=== PATIENT | female | born 1965 | race Caucasian/White ===

== ENCOUNTER 2021-02-18 08:12 | Inpatient (IN) | payer BC ==
[2021-02-17 11:45] LABS: BASOPHILS # (AUTO) 0.1 X10'3 (0-0.2); BASOPHILS % (AUTO) 0.8 % (0-1); EOSINOPHILS % (AUTO) 0.4 % (0-6); LYMPHOCYTES # (AUTO) 2.7 X10'3 (1.1-4.8); LYMPHOCYTES % (AUTO) 33.3 % (21-51); MEAN CORPUSCULAR HEMOGLOBIN 29.5 PG (27.0-31.0); MEAN CORPUSCULAR HGB CONC 33.7 g/dL (33.0-36.5); MEAN CORPUSCULAR VOLUME 87.6 FL (78-98); MEAN PLATELET VOLUME 7.9 FL (7.4-10.4); MONOCYTES # (AUTO) 0.4 X10'3 (0-0.9); MONOCYTES % (AUTO) 5.2 % (2-12); NEUTROPHILS # (AUTO) 4.9 X10'3 (1.8-7.7); NEUTROPHILS % (AUTO) 60.3 % (42-75); PRE OP HEMATOCRIT 42.4 % (35.0-45.0); PRE OP HEMOGLOBIN 14.3 g/dL (12.0-16.0); PRE OP PLATELET COUNT 385 X10'3 (140-440); RED BLOOD COUNT 4.84 X10'6 (4.20-5.60); RED CELL DISTRIBUTION WIDTH 12.5 % (11.5-14.5)
[2021-02-17 11:55] LABS: ALBUMIN/GLOBULIN RATIO 0.9 (1.1-1.5); ALKALINE PHOSPHATASE 75 IU/L (46-116); BLOOD UREA NITROGEN 19 MG/DL (7-18); BUN/CREATININE RATIO 19.6 (6.6-38.0); CALCIUM 9.3 MG/DL (8.5-10.1); CHLORIDE 105 MMOL/L (99-107); CREATININE 0.97 MG/DL (0.40-0.90); PRE OP ALT 40 U/L (30-65); PRE OP ANION GAP 8 (8-16); PRE OP AST 26 U/L (10-37); PRE OP BILIRUB, TOTAL 0.4 MG/DL (0.0-1.0); PRE OP GLUCOSE 91 MG/DL (70-104); PRE OP POTASSIUM 4.1 MMOL/L (3.4-5.1); PRE OP SODIUM 143 MMOL/L (135-145); TOTAL CARBON DIOXIDE 29.6 MMOL/L (24-32); TOTAL PROTEIN 8.3 G/DL (6.4-8.2); eGFR 60 ML/MIN
[2021-02-17 12:44] LABS: PRE OP PROTIME 10.7 SECONDS (9.0-12.0)
[2021-02-18] VITALS (27 sets, daily range): BP systolic 90–158; BP diastolic 41–93
[~2021-02-18] VITALS: Ht 180.3 cm; Wt 79.4 kg
[~2021-02-18 08:12] MED LIST: BIOT5000 PO; CEFD300C3 PO; CHOL20004 PO; FLUT16SP2 BOTHNARES; MULT-1085 PO; OMEG-79 PO; ZINC50TA67 PO; famotidine 20mg tablet PO ONE; ringers solution, lacted 1,000 ML IV SCH
[2021-02-18] MEDS ORDERED: LIDOcaine 1% (10mg/ml) 2ml vial ONE ×2 (09:05→11:20)
[2021-02-18 10:19] LABS: CLARITY,URINE CLEAR (Clear); COLOR,URINE YELLOW (Yellow); GLUCOSE, URINE NEGATIVE (Neg); KETONES,URINE NEGATIVE (Neg); NITRITES, URINE NEGATIVE (Neg); OCCULT BLOOD,URINE NEGATIVE (Neg); PROTEIN,URINE NEGATIVE (Neg); UA COLLECTION TYPE CLN CATCH MIDSTREAM; UROBILINOGEN,URINE 0.2 E.U/dL (0.2-1.0)
[2021-02-18 10:22] LABS: LEUKOCYTE ESTERASE ,URINE TRACE (Neg)
[2021-02-18 10:23] LABS: BACTERIA,URINE FEW /HPF (Neg); MUCUS STRANDS NONE SEEN /LPF (Neg); RBC,URINE NONE SEEN /HPF (0-2); SQUAMOUS EPITHELIAL CELL,UR FEW /LPF (FEW)
[2021-02-18] MEDS ORDERED: BUPIVAcaine 0.5% inj/PF 30 ML ONE ×2 (11:20→16:43)
[2021-02-18] MEDS ORDERED: rocuronium 10mg/ml inj IV ONE ×3 (11:21→15:24)
[2021-02-18] MEDS ORDERED: LIDOcaine 2% (20mg/ml) 5ml vial ONE (11:21)
[2021-02-18] MEDS ORDERED: ondansetron/PF 4mg/2ml inj ONE (11:21)
[2021-02-18] MEDS ORDERED: propofol inj 20 ML IV ONE (11:21)
[2021-02-18] MEDS ORDERED: LIDOcaine 1%/PF 5ML 10 MG/ML VIAL ONE (11:21)
[2021-02-18] MEDS ORDERED: MIDAZolam 1 MG/ML 5ML VIAL ONE (11:22)
[2021-02-18] MEDS ORDERED: fentaNYL /PF 50mcg/ml 5ml ampule ONE ×2 (11:22→16:03)
[2021-02-18] MEDS ORDERED: cefazolin/dext.iso 2gm/50ml 50 ML IV ONE (11:25)
[2021-02-18] MEDS ORDERED: MIDAZolam 1mg/ml 10ml vial ONE (12:22)
[2021-02-18] MEDS ORDERED: albumin (Human) 5% 250ml 250 ML IV ONE (13:08)
[2021-02-18] MEDS ORDERED: dexamethasone sod phosphate 4mg/ml inj. ONE (13:12)
[2021-02-18] MEDS ORDERED: ringers solution, lacted 1,000 ML IV SCH (14:10)
[2021-02-18] MEDS ORDERED: morphine 4 MG/ML inj SYRINge IV PRN ×3 (14:10→17:35)
[2021-02-18] MEDS ORDERED: fentaNYL/PF 50MCG/1 ML 2ML syringe IV PRN ×2 (14:10)
[2021-02-18] MEDS ORDERED: ondansetron/PF 4mg/2ml inj IV PRN ×3 (14:10→17:35)
[2021-02-18] MEDS ORDERED: labetalol 20mg/4ml (5mg/ml) syringe IV PRN (14:10)
[2021-02-18] MEDS ORDERED: hydrALAZINE 20mg/ml inj. IV PRN (14:10)
[2021-02-18] MEDS ORDERED: sugammadex 200mg/2ml injection IV ONE (16:42)
[2021-02-18] MEDS ORDERED: BUPIVACAINE liposomal/PF 13.3 MG/ML vial IM ONE (16:43)
[2021-02-18] MEDS ORDERED: albuterol 2.5 MG/3 ML nebule NEB ONE (17:05)
--- NOTE | 2021-02-18 17:29 | NUR ---
Received from OR via BED, accompanied by Anesthesiologist DR BOWERS and report given by Anesthesiologist AND AFTER SCHOOL COUNSELOR. PT VERY DROWSY, NO S/S OF DISTRESS/DISCOMFORT, VSS. RIGHT LATERAL POSTERIOR CHEST W/4 LAP SITES W/BANDAIDS CDI, SINGLE CT TO RIGHT LATERAL ANTERIOR CHEST W/SANGUINOUS DRAINAGE. CT TO 20 CM H20 SUCTION, NO AIR LEAK NOTED. PITTS CATHETER TO GRAVITY DRAINAGE W/YELLOW URINE IN DRAINAGE BAG. Addendum: 02/18/21 at 1827 by aMrcie Morgan RN Amended: Links added.
[2021-02-18] MEDS ORDERED: naloxone 0.4 mg/ml inj IV PRN (17:35)
[2021-02-18] MEDS ORDERED: metoclopramide 5 mg/ml inj IV PRN (17:35)
[2021-02-18] MEDS ORDERED: HYDROcodone/acetaminophen 10/325mg tab PO PRN (17:35)
[2021-02-18] MEDS ORDERED: albuterol 2.5 MG/3 ML nebule NEB PRN (17:35)
[2021-02-18] MEDS ORDERED: CADD PCA waste documentation MC PRN (17:35)
[2021-02-18 17:42] LABS: ABG HCO3 21.5 mmol/L (22.0-26.0); ABG OXYGEN SATURATION 98.9 % (94-97); ABG PCO2 (T) 40.5 mmHg (32.0-45.0); ALLEN'S TEST POSITIVE; FCOHb 0.3 % (0.0-3.9); FLOW 10 L/min; FMetHb 0.3 % (0.0-1.5); FO2Hb 98.3 % (94-97); PATIENT TEMPERATURE 36.9; TOTAL HEMOGLOBIN 12.9 G/dl (12.0-16.0)
[2021-02-18] MEDS: morphine 2 MG/ML inj. syringe IV PRN ×3 (18:46→19:31)
[2021-02-18] MEDS ORDERED: ketorolac trometh. 30mg/ml inj. IV ONE (19:55)
[2021-02-18] MEDS ORDERED: ketorolac trometh. 30mg/ml inj. IV PRN (19:55)
[2021-02-18] MEDS ORDERED: acetaminophen 1,000mg/100ml IV 100 ML IV ONE (19:55)
--- NOTE | 2021-02-18 19:58 | NUR ---
ARTERIAL LINE D/CD, HEMOSTASIS ACHIEVED, PARDEEP MINOR. DR LOYA IN TO SEE PT. Addendum: 02/18/21 at 1958 by Marcie Morgan RN Amended: Links added.
--- NOTE | 2021-02-18 20:28 | NUR ---
Report called to receiving nurse. PT STATES IS COMFORTABLE, PAIN MUCH IMPROVED. Transferred via BED ON TELE AND SUCTION FOR CT, 1 LARGE DUFFLE BAG W/Belongings, 1 BLACK GARBAGE BAG W/PILLOW AND BLANKET SENT W/PT TO ROOM 3019. RECEIVING RN AT BEDSIDE TO RECEIVE PT, BLL, CALL LIGHT GIVEN, SIDE RAILS UP X 2. CT TO 20 CM H2O SUCTION. Special Issues communicated to receiving nurse. YES. Addendum: 02/18/21 at 2042 by Marcie Morgan RN Amended: Links added.
--- NOTE | 2021-02-18 20:30 | NUR ---
Report received from Marcie. Addendum: 02/18/21 at 2113 by Steffany Whitley RN residential manager. Patient brought to room. BS checked. water and broth provided. CT checked and draining per suction at 20.
[2021-02-18] MEDS: gabapentin 300mg capsule PO SCH (21:12)
[2021-02-18] MEDS: dextrose 5%-lactated ringers 1,000 ML IV SCH (21:14)
[2021-02-18] MEDS: HYDROcodone/acetaminophen 10/325mg tab PO PRN (21:32)
[2021-02-18] MEDS: ceFAZolin 1GM/D5W- ADD-VANTAGE 50 ML IV SCH (23:49)
[2021-02-19] VITALS (7 sets, daily range): BP systolic 90–130; BP diastolic 43–70
[2021-02-19] MEDS: HYDROcodone/acetaminophen 10/325mg tab PO PRN ×4 (01:36→20:39)
--- NOTE | 2021-02-19 01:45 | NUR ---
Administered [place] 10/325 at 0136 since it is past 0000 and Acetaminophen daily limit has restarted.
--- NOTE | 2021-02-19 02:42 | NUR ---
reviewed and edited SRN assessment findings.
[2021-02-19] MEDS: dextrose 5%-lactated ringers 1,000 ML IV SCH ×2 (03:45→07:38)
--- NOTE | 2021-02-19 06:01 | NUR ---
Administered [place] at 0551 since it is past 0000 and Acetaminophen daily limit has restarted. 500mg given of acetaminophen so far today. Addendum: 02/19/21 at 0623 by Ritu LEONARD 650mg tylenol given not 500
--- NOTE | 2021-02-19 06:18 | NUR ---
Problems reprioritized. Patient report given, questions answered & plan of care reviewed with Constance.
--- NOTE | 2021-02-19 06:31 | NUR ---
Patient in room PCU 3019. I have received report from LYNETTE Jeter and had the opportunity to ask questions and assume patient care.
[2021-02-19 06:56] LABS: ALANINE AMINOTRANSFERASE 61 U/L (12-78); ALBUMIN 3.3 G/DL (3.4-5.0); ALKALINE PHOSPHATASE 57 IU/L (46-116); ANION GAP 7 (8-16); ASPARTATE AMINO TRANSFERASE 49 U/L (10-37); BASOPHILS % (AUTO) 0.1 % (0-1); BILIRUBIN,TOTAL 0.5 MG/DL (0.1-1.0); BLOOD UREA NITROGEN 15 MG/DL (7-18); BUN/CREATININE RATIO 13.9 (6.6-38.0); CALCIUM 8.2 MG/DL (8.5-10.1); CHLORIDE 108 MMOL/L (99-107); CREATININE 1.08 MG/DL (0.40-0.90); EOSINOPHILS % (AUTO) 0 % (0-6); GLUCOSE 115 MG/DL (70-104); HEMATOCRIT 36.4 % (35.0-45.0); HEMOGLOBIN 12.1 g/dl (12.0-16.0); LYMPHOCYTES # (AUTO) 2.2 X10'3 (1.1-4.8); LYMPHOCYTES % (AUTO) 18.1 % (21-51); MAGNESIUM 1.9 MG/DL (1.5-2.4); MEAN CORPUSCULAR HEMOGLOBIN 29.7 PG (27.0-31.0); MEAN CORPUSCULAR HGB CONC 33.3 g/dL (33.0-36.5); MEAN CORPUSCULAR VOLUME 89.3 FL (78-98); MONOCYTES # (AUTO) 1.1 X10'3 (0-0.9); MONOCYTES % (AUTO) 8.7 % (2-12); NEUTROPHILS # (AUTO) 8.9 X10'3 (1.8-7.7); NEUTROPHILS % (AUTO) 73.1 % (42-75); PHOSPHORUS 3.8 MG/DL (2.3-4.5); PLATELET COUNT 348 X10'3 (140-440); POTASSIUM 4.3 MMOL/L (3.5-5.1); RED BLOOD COUNT 4.08 X10'6 (4.20-5.60); RED CELL DISTRIBUTION WIDTH 12.6 % (11.5-14.5); SODIUM 143 MMOL/L (135-145); TOTAL CARBON DIOXIDE 27.8 MMOL/L (24-32); TOTAL PROTEIN 6.7 G/DL (6.4-8.2); WHITE BLOOD COUNT 12.1 X10'3 (4.5-11.0); eGFR 53 ML/MIN
[2021-02-19] MEDS: gabapentin 300mg capsule PO SCH ×2 (07:37→20:39)
[2021-02-19] MEDS: ceFAZolin 1GM/D5W- ADD-VANTAGE 50 ML IV SCH (08:54)
--- NOTE | 2021-02-19 09:44 | NUR ---
patient up and ambulating with PT.
--- NOTE | 2021-02-19 09:56 | NUR ---
patient was up to ambulate with PT and upon return to room right lung chest tube draining serosanguineous fluid. Reinforced with abd pad and tape. Will continue to monitor. Addendum: 02/19/21 at 0957 by Constance Fontenot RN Amended: Links added.
--- NOTE | 2021-02-19 12:09 | NUR ---
DM consult: Per EMR pt with pre-diabetes, current A1c is 5.5%, DM education not warranted at this time. Will continue to follow. Addendum: 02/19/21 at [address] Amended: Links added.
--- NOTE | 2021-02-19 13:52 | NUR ---
Dressing to right chest tube again reinforced.
--- NOTE | 2021-02-19 15:16 | NUR ---
Dr. Castaneda was in to see patient and aware patient's chest tube dressing has been reinforced twice. Dr. Pugh reassured patient that was normal. IJ to right neck Dc'd. Patient chest tube on water seal. Turner catheter also dc'd. Will continue to monitor.
--- NOTE | 2021-02-19 18:16 | NUR ---
Problems reprioritized. Patient report given, questions answered & plan of care reviewed with LYNETTE Jeter.
[2021-02-20] MEDS: HYDROcodone/acetaminophen 10/325mg tab PO PRN ×4 (00:36→15:26)
--- NOTE | 2021-02-20 00:47 | NUR ---
reviewed and edited SRN assessment.
--- NOTE | 2021-02-20 03:19 | NUR ---
Patient refused 0200 vitals.
[2021-02-20 06:00] VITALS: BP 96/49
--- NOTE | 2021-02-20 06:30 | NUR ---
Problems reprioritized. Patient report given, questions answered & plan of care reviewed with Viraj.
--- NOTE | 2021-02-20 06:44 | NUR ---
Patient in room PCU 3019. I have received report from Steffany long and had the opportunity to ask questions and assume patient care.
[2021-02-20 07:27] LABS: BASOPHILS # (AUTO) 0.1 X10'3 (0-0.2); BASOPHILS % (AUTO) 0.6 % (0-1); EOSINOPHILS # (AUTO) 0.2 X10'3 (0-0.9); EOSINOPHILS % (AUTO) 1.8 % (0-6); HEMATOCRIT 36.3 % (35.0-45.0); HEMOGLOBIN 12.2 g/dl (12.0-16.0); LYMPHOCYTES % (AUTO) 42.7 % (21-51); MEAN CORPUSCULAR HEMOGLOBIN 30.4 PG (27.0-31.0); MEAN CORPUSCULAR HGB CONC 33.7 g/dL (33.0-36.5); MEAN CORPUSCULAR VOLUME 90.3 FL (78-98); MEAN PLATELET VOLUME 8.1 FL (7.4-10.4); MONOCYTES # (AUTO) 0.9 X10'3 (0-0.9); MONOCYTES % (AUTO) 9.2 % (2-12); NEUTROPHILS # (AUTO) 4.3 X10'3 (1.8-7.7); NEUTROPHILS % (AUTO) 45.7 % (42-75); PLATELET COUNT 340 X10'3 (140-440); RED BLOOD COUNT 4.02 X10'6 (4.20-5.60); RED CELL DISTRIBUTION WIDTH 12.5 % (11.5-14.5); WHITE BLOOD COUNT 9.4 X10'3 (4.5-11.0)
[2021-02-20 07:48] LABS: ALANINE AMINOTRANSFERASE 52 U/L (12-78); ALBUMIN 3.3 G/DL (3.4-5.0); ALBUMIN/GLOBULIN RATIO 0.9 (1.1-1.5); ALKALINE PHOSPHATASE 60 IU/L (46-116); ANION GAP 7 (8-16); ASPARTATE AMINO TRANSFERASE 34 U/L (10-37); BILIRUBIN,TOTAL 0.5 MG/DL (0.1-1.0); BLOOD UREA NITROGEN 14 MG/DL (7-18); BUN/CREATININE RATIO 14.7 (6.6-38.0); CALCIUM 8.4 MG/DL (8.5-10.1); CHLORIDE 110 MMOL/L (99-107); CREATININE 0.95 MG/DL (0.40-0.90); GLUCOSE 98 MG/DL (70-104); PHOSPHORUS 3.3 MG/DL (2.3-4.5); SODIUM 146 MMOL/L (135-145); TOTAL CARBON DIOXIDE 29.2 MMOL/L (24-32); TOTAL PROTEIN 7.1 G/DL (6.4-8.2); eGFR 61 ML/MIN
[2021-02-20] MEDS: gabapentin 300mg capsule PO SCH (08:30)
[2021-02-20 11:00] VITALS: BP 115/58
[2021-02-20] MEDS ORDERED: HYDR-3972 PO (14:15)
[2021-02-20 14:31] VITALS: BP 122/60
--- NOTE | 2021-02-20 15:43 | NUR ---
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
== END 2021-02-20 15:43 | disposition home or self-care (01) | DRG 165 ==
LOC: PAS IN 08:12 → PCU 3S 20:26
PROVIDERS: ADMIT Surgery; ATTEND Surgery
PROC: 8E0W4CZ Robotic Assisted Procedure of Trunk Region, Percutaneous Endoscopic Approach (ICD-10-PCS; 2021-02-18)
PROC: 03HY32Z Insertion of Monitoring Device into Upper Artery, Percutaneous Approach (ICD-10-PCS; 2021-02-18)
PROC: 0BTD4ZZ Resection of Right Middle Lung Lobe, Percutaneous Endoscopic Approach (ICD-10-PCS; principal; 2021-02-18 12:08)
DX: C34.2 Malignant neoplasm of middle lobe, bronchus or lung (principal); Z20.822 Contact with and (suspected) exposure to COVID-19; N18.2 Chronic kidney disease, stage 2 (mild)
CPT/HCPCS: Z7506; Z7508; 36415; 36600; 71045; 71046; 80053; 81001; 82803; 82948; 83036; 83735; 84100; 85018; 85025; 85610; 85730; 86885; 86900; 86901; 87081; 87088; 87635; 93005; 94010; 94760; 97161; 97530; A4618; A6258; A6449; A7000; A7048; C1758; C9250; C9290; C9399; G0378; J0131; J0690; J1100; J1885; J2001; J2250; J2270; J2405; J2704; J3010; J7030; J7040; J7120; J7121; P9045